=== PATIENT | male | born 1990 | race Two or more races ===

== ENCOUNTER 2019-02-16 18:04 | Emergency (ER) | payer OTHER ==
[~2019-02-16] VITALS: Ht 167.6 cm; Wt 75.7 kg
[2019-02-16 18:04] VITALS: BP 128/71
--- NOTE | 2019-02-16 19:00 | NUR ---
Patient discharged to home in stable condition. Written and verbal after care instructions given. Patient verbalizes understanding of instruction.
== END 2019-02-16 19:00 | disposition home or self-care (01) ==
LOC: ER 18:04
DX: L08.9 Local infection of the skin and subcutaneous tissue, unspecified (principal); J34.89 Other specified disorders of nose and nasal sinuses